=== PATIENT | female | born 1980 | race American Indian/Alaskan Native ===

== ENCOUNTER 2020-02-28 23:42 | Emergency (ER) | payer SELFPAY ==
[2020-02-29 03:45] LABS: Bilirubin,Urine NEG (Negative); Blood,Urine NEG (Negative); Color,Urine Yellow (Yellow); Mucus,Urine FEW /HPF; Protein,Urine <15 mg/dL mg/dL (Negative); Urobilinogen,Urine < 2.0 mg/dL (<2.0); WBC,Urine < 1.0 /HPF (0.0-6.0)
[2020-02-29 03:52] LABS: HCG Qualitative,Urine Negative (Negative)
[2020-02-29] MEDS ORDERED: KETOROLAC 30 MG/1 ML INJ IV ONE (07:00)
--- NOTE | 2020-02-29 07:11 | Emergency Department Report ---
ED General Adult HPI - General Chief complaint: Urogenital-Female Stated complaint: LT SIDE ABD PAIN LOW BACK PAIN VAGINAL PAIN Time Seen by Provider: 02/29/20 06:59 Source: patient Mode of arrival: Ambulatory Limitations: No Limitations - History of Present Illness Initial comments: 39-year-old female with no significant past medical history presents with chief complaint of abdominal pain and back pain gradual onset over the past 3 weeks primarily on the left side. She states that she feels pain in her vaginal area as well but denies any dysuria, discharge, abnormal bleeding. She states that her last menstrual period was on February 09. She denies any associated nausea, vomiting, fevers, diarrhea, constipation or any other associated symptoms besides the pain. Pain is moderate, no alleviating or exacerbating factors. - Related Data Previous Rx's Medication Instructions Recorded Last Taken Type Ferrous Sulfate [Iron 325 MG] 325 mg PO BID #20 tablet 02/29/20 Unknown Rx Naproxen [Naprosyn] 500 mg PO BID #20 tablet 02/29/20 Unknown Rx Allergies Allergy/AdvReac Type Severity Reaction Status Date / Time No Known Allergies Allergy Unverified 02/29/20 03:12 ED Review of Systems ROS: Stated complaint: LT SIDE ABD PAIN LOW BACK PAIN VAGINAL PAIN Other details as noted in HPI Comment: All other systems reviewed and negative Gastrointestinal: as per HPI ED Past Medical Hx - Past Medical History Previous Medical History?: Yes Additional medical history: Fibroids - Surgical History Past Surgical History?: No - Social History Smoking Status: Never Smoker Substance Use Type: None - Medications Home Medications: Home Medications Medication Instructions Recorded Confirmed Last Taken Type Ferrous Sulfate [Iron 325 MG] 325 mg PO BID #20 tablet 02/29/20 Unknown Rx Naproxen [Naprosyn] 500 mg PO BID #20 tablet 02/29/20 Unknown Rx ED Physical Exam - General Limitations: No Limitations General appearance: alert, in no apparent distress - Head Head exam: Present: atraumatic, normocephalic - Eye Eye exam: Present: normal appearance - ENT ENT exam: Present: mucous membranes moist - Neck Neck exam: Present: normal inspection - Respiratory Respiratory exam: Present: normal lung sounds bilaterally. Absent: respiratory distress - Cardiovascular Cardiovascular Exam: Present: regular rate, normal rhythm. Absent: systolic murmur, diastolic murmur, rubs, gallop - GI/Abdominal GI/Abdominal exam: Present: soft, distended, normal bowel sounds, mass (Palpable left abdominal mass). Absent: tenderness - Extremities Exam Extremities exam: Present: normal inspection - Back Exam Back exam: Present: normal inspection - Neurological Exam Neurological exam: Present: alert, oriented X3 - Psychiatric Psychiatric exam: Present: normal affect, normal mood - Skin Skin exam: Present: warm, dry, intact, normal color. Absent: rash ED Course Vital Signs 02/29/20 02/29/20 02:39 08:01 Temperature 99.3 F 98.6 F Pulse Rate 73 79 Respiratory 18 16 Rate Blood Pressure 141/73 Blood Pressure 127/66 [Left] O2 Sat by Pulse 100 100 Oximetry ED Medical Decision Making - Lab Data Result diagrams: 02/29/20 07:05 02/29/20 07:05 - Radiology Data Radiology results: report reviewed Large uterine fibroids - Medical Decision Making 39-year-old female with abdominal pain and back pain. On my exam palpable mass to the abdomen, no peritoneal signs. Labs and CT will be obtained. Toradol ordered. Patient with noted hemoglobin 6.9. Upon questioning she has no bleeding and states that her typical numbers run in the 6-7 range. She is asymptomatic. CT confirms large fibroids. She states that she is aware that she had some fibroids but has not followed up. I have advised that she should use NSAIDs as needed for pain, take iron due to anemia and follow-up with [facility] for further evaluation and management. - Differential Diagnosis Fibroid, UTI, stone, malignancy Critical care attestation.: If time is entered above; I have spent that time in minutes in the direct care of this critically ill patient, excluding procedure time. ED Disposition Clinical Impression: Uterine fibroid Qualifiers: Uterine leiomyoma location: unspecified location Qualified Code(s): D25.9 - Leiomyoma of uterus, unspecified Anemia Qualifiers: Anemia type: unspecified type Qualified Code(s): D64.9 - Anemia, unspecified Disposition: DC-01 TO HOME OR SELFCARE Is pt being admited?: No Condition: Good Instructions: Uterine Fibroids Prescriptions: Ferrous Sulfate [Iron 325 MG] 325 mg PO BID #20 tablet Naproxen [Naprosyn] 500 mg PO BID #20 tablet Referrals: PRIMARY CAREMD [Primary Care Provider] - 3-5 Days SEBASTIAN DICKERSON MD [Staff Physician] - 3-5 Days Time of Disposition: 09:49
[2020-02-29 07:32] LABS: Basophils # (Auto) 0.1 K/mm3 (0.0-0.1); Basophils % (Auto) 1.9 % (0.0-1.8); Eosinophils # (Auto) 0.1 K/mm3 (0.0-0.4); Eosinophils % (Auto) 2.7 % (0.0-4.3); Hematocrit 23.2 % (30.3-42.9); Hemoglobin 6.9 gm/dl (10.1-14.3); Lymphocytes # (Auto) 1.3 K/mm3 (1.2-5.4); Lymphocytes % (Auto) 38.5 % (13.4-35.0); Mean Corpuscular HGB Conc 30 % (30-34); Monocytes # (Auto) 0.4 K/mm3 (0.0-0.8); Monocytes % (Auto) 10.6 % (0.0-7.3); Platelet Count 149 K/mm3 (140-440); Red Blood Count 3.48 M/mm3 (3.65-5.03); Red Cell Distribution Width 19.1 % (13.2-15.2)
[2020-02-29 07:38] LABS: Mean Corpuscular Volume 67 fl (79-97)
[2020-02-29 07:58] LABS: Alanine Aminotransferase 9 units/L (7-56); Albumin 4.1 g/dL (3.9-5); Blood Urea Nitrogen 10 mg/dL (7-17); Calcium 8.6 mg/dL (8.4-10.2); Hemolysis Index 0
[2020-02-29 08:10] LABS: BUN/Creatinine Ratio 17
--- NOTE | 2020-02-29 08:54 | Cat Scan Report ---
CT ABDOMEN AND PELVIS WITHOUT CONTRAST HISTORY: abd pain COMPARISON: None. TECHNIQUE: Axial CT images were obtained through the abdomen and pelvis without IV contrast. Sagittal and coronal reformatted images. All CT scans at this location are performed using CT dose reduction for ALARA by means of automated exposure control. FINDINGS: CT ABDOMEN: Lung Bases: Clear. Liver: No significant abnormality. Biliary: No significant abnormality. Spleen: No significant abnormality. Unenlarged. Pancreas: No significant abnormality. Adrenals: No significant abnormality. Kidneys: No significant abnormality. Lymphatics: No lymphadenopathy. Vasculature: No significant abnormality. Bowel/Peritoneum: No significant abnormality. No free air. No free fluid. CT PELVIS: : The uterus is markedly enlarged and contains numerous large masses. The uterus measures up to 24 x 22 x 11 cm. Multiple small and large fibroids are identified. The largest fibroid measures 14.8 x 9 .2 cm in the left side of the uterine fundus. The adnexa are grossly normal. Osseous Structures: No significant abnormality. Additional Findings: None IMPRESSION: Severe uterine fibroid disease. Signer Name: Shree Littlejohn Jr, MD Signed: 02/29/2020 8:50 AM Workstation Name: [id number]
[2020-02-29 10:13] VITALS: BP 113/57
== END 2020-02-29 10:14 | disposition home or self-care (01) ==
LOC: ED 23:42
DX: D25.9 Leiomyoma of uterus, unspecified (principal); D64.9 Anemia, unspecified; Z79.899 Other long term (current) drug therapy
CPT/HCPCS: 36415; 74176; 80053; 81001; 81025; 85025; J1885